=== PATIENT | female | born 1940 | race Caucasian/White ===

== ENCOUNTER 2019-09-30 12:05 | Inpatient (IN) | payer MEDICARE, OTHER, SELFPAY ==
[2019-09-30] MEDS ORDERED: Sodium Chloride 0.9% 10 ML Syringe FLUSH PRN (12:20)
[2019-09-30] MEDS ORDERED: Azithromycin 500 MG in Sodium Chloride 0.9% 250 ML IV SCH ×2 (12:30→12:46)
[2019-09-30] MEDS ORDERED: Albuterol/Ipratropium 3.0-0.5 MG/3 ML Neb Soln NEB PRN (12:53)
[2019-09-30] MEDS ORDERED: Acetaminophen 325 MG Tab PO PRN (13:01)
[2019-09-30] MEDS: Nicotine 14 MG/24 Hr Patch TRDERM SCH (13:10)
[2019-09-30] MEDS: cefTRIAXone 1 GM Vial IVPUSH SCH (13:11)
[2019-09-30 13:34] LABS: CHLORIDE,CL 105 mmol/L (98-107); SODIUM,NA 143 mmol/L (136-145)
[2019-09-30] MEDS: Albuterol/Ipratropium 3.0-0.5 MG/3 ML Neb Soln NEB SCH ×2 (13:36→14:37)
[2019-09-30] MEDS ORDERED: Ondansetron 4 MG/2 ML SDV IVPUSH PRN (14:29)
[2019-09-30] MEDS: Enoxaparin 40 MG/0.4 ML Syringe SUBCUT SCH (17:00)
[2019-09-30] MEDS ORDERED: NICOTINE POLACRILEX 4 MG PO PRN (18:31)
[2019-09-30] MEDS ORDERED: Ondansetron 4 MG Tab.DIS PO PRN (18:31)
[2019-09-30] MEDS ORDERED: Acetaminophen 650 MG Tab.ER PO PRN (18:31)
[2019-09-30] MEDS ORDERED: Cyclobenzaprine 10 MG Tab PO PRN (18:31)
[2019-09-30] MEDS: Diclofenac Sodium 75 MG Tab.EC PO SCH (19:22)
[2019-09-30] MEDS: Hypromellose 0.3% Ophth Soln 15 ML Bottle EYEBOTH SCH (19:22)
[2019-09-30] MEDS: Gabapentin 400 MG Cap PO SCH (19:22)
[2019-09-30] MEDS: Albuterol/Ipratropium 3.0-0.5 MG/3 ML Neb Soln INH SCH (19:22)
[2019-09-30] MEDS: oxyCODONE 5 MG Tab PO PRN (19:23)
[2019-09-30] MEDS: Montelukast 10 MG Tab PO SCH (19:23)
[2019-09-30] MEDS: traZODone 50 MG Tab PO SCH (21:23)
[2019-10-01] MEDS: Albuterol/Ipratropium 3.0-0.5 MG/3 ML Neb Soln INH SCH ×4 (00:45→18:24)
[2019-10-01] MEDS: Omeprazole 20 MG Cap.CR PO SCH (06:08)
[2019-10-01 07:02] LABS: CHLORIDE,CL 107 mmol/L (98-107); SODIUM,NA 144 mmol/L (136-145)
[2019-10-01 07:15] LABS: ANION GAP 14.3 mmol/L (10-20)
[2019-10-01] MEDS: Cholecalciferol (Vitamin D3) 25 MCG Tab PO SCH (07:47)
[2019-10-01] MEDS: Diclofenac Sodium 75 MG Tab.EC PO SCH ×2 (07:47→19:11)
[2019-10-01] MEDS: Simvastatin 10 MG Tab PO SCH (07:47)
[2019-10-01] MEDS: Aspirin 81 MG Tab.EC PO SCH (07:47)
[2019-10-01] MEDS: Hypromellose 0.3% Ophth Soln 15 ML Bottle EYEBOTH SCH ×2 (07:48→19:11)
[2019-10-01] MEDS: Gabapentin 400 MG Cap PO SCH ×3 (07:48→19:10)
[2019-10-01] MEDS: Lactobacillus Rhamnosus GG (Probiotic) Cap PO SCH (07:48)
[2019-10-01] MEDS ORDERED: Potassium Chloride 10 MEQ Tab.ER PO ONE (07:59)
[2019-10-01] MEDS: oxyCODONE 5 MG Tab PO PRN ×2 (08:50→21:20)
[2019-10-01] MEDS: Doxycycline 100 MG Cap PO SCH ×2 (08:50→19:10)
--- NOTE | 2019-10-01 09:29 | CR ---
[id number] RAD/RAD Chest PA or AP 1V EXAM: RAD Chest PA or AP 1V INDICATION: PNEUMONIA. COMPARISON: None. DISCUSSION: Opacification throughout the right lung base with blunting of the costophrenic sulcus. Findings are consistent with an effusion. There is underlying parenchymal opacification as well. Left lung is clear. IMPRESSION: Right-sided pleural effusion with atelectasis and possible superimposed pneumonia. Correlate for signs of infection. Vega Chan MD 10/01/19 0927 Thank you for allowing us to participate in the care of your patient.
--- NOTE | 2019-10-01 10:10 | HP ---
CHIEF COMPLAINT: Cough, body aches, and fatigue. HISTORY OF PRESENT ILLNESS: This is a 79-year-old female who has been sick for the last week. She is not sure if she has had fever, but has had cold sweats. No headache, but has had sinus pain and a nasty cough with runny nose and sore throat off and on. The patient describes the cough as dry. She is not short of breath, but does have some pain with taking deep breaths. She is a smoker. She has weaned down to a half pack per day. She is trying to quit. She has been on albuterol for a few years, but did not start using it until recently. She is using it twice a day. She had PFTs recently showing moderate COPD and was started on Anoro, but has not tried it because of side effects and not knowing how to use it. The patient has used some jkqk-kmr-bxbimac cough syrup. She has tried Vicks Nighttime Relief. She just states she is tired. She does not feel like she is getting better. ALLERGIES: Include sulfa drugs, hives; codeine; hydrocodone; morphine; Sudafed; tramadol. MEDICATIONS: Her medication list is reviewed. She has newly started on Anoro, but has not started yet; Zofran as needed; Neurontin 800 three times a day; albuterol 2 puffs every 4 hours as needed for shortness of breath; trazodone 100 to 150 at bedtime as needed for sleep; Singulair 10 mg daily as needed for allergies; oxycodone 5 mg twice daily as needed for pain, she uses infrequently; triamcinolone cream; Pravachol 10 mg daily; Prilosec 20 mg daily; Flexeril 0.5 to 1 tablet 3 times a day as needed for muscle spasm; Voltaren 75 mg twice daily; Fosamax weekly; aspirin 81 mg daily; ferrous sulfate 325 every other day; ketoprofen eye drops; vitamin D 2000 units daily; Tylenol 650 twice daily as needed for pain; calcium and vitamin D; [place] Boo, Bifantis probiotic; Systane eye drops; NicoDerm patch 21 mg; and nicotine lozenges. 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 PAST SURGICAL HISTORY: Surgically, the patient has had remote history of back surgery, bladder surgery, trigger finger releases, a left total knee, tonsillectomy, laparoscopic cholecystectomy, cataracts, carpal tunnel, knee arthroscopy on the left. SOCIAL HISTORY: The patient is retired. She is . She has 4 children. She is a smoker. FAMILY HISTORY: Both parents are . She has a sister, who , who had colorectal cancer. A couple of living sisters with hypertension. Brother with arthritis and hypertension. REVIEW OF SYSTEMS: General: The patient has had a decreased appetite and 5-pound weight loss over the last few weeks. She has had no fever. HEENT: As stated in the HPI. Respiratory: As stated in the HPI. Otherwise, she denies wheezing. Cough is dry. Cardiac: No chest pain. Gastrointestinal: No nausea, vomiting, or diarrhea. Musculoskeletal: Does have chronic back pain. No changes there. Otherwise, all systems reviewed and found to be negative unless otherwise stated. PHYSICAL EXAMINATION: Vital Signs: When the patient was seen for admission at [facility], her weight was 54.4 kg; her heart rate was 122 after walking just a short distance; blood pressure 130/62; temperature 98.1; O2 of 90 on room air, 89 after walking just a short distance. General: She is in mild distress. She appears ill and tired. Heart: Irregular rate and rhythm with tachycardia. She also has a murmur appreciated. LUNGS: Sounds were slightly decreased on the left, but no wheezes or crackles. On the right base, no lung sounds present. No crackles or wheezes. Abdomen: Nondistended, nontender. Extremities: Warm and dry. No edema. Mental Status: She is alert. She is orientated x3. LABORATORY DATA: Her lab work is ordered and pending. Her chest x-ray does show a right lower lobe infiltrate. ASSESSMENT: 1. Community-acquired pneumonia with hypoxia and tachycardia. Given the patient's fatigue and progression of symptoms, we will admit her for oxygen, IV antibiotics with Rocephin and Zithromax, scheduled DuoNeb and p.r.n. as well. 2. Chronic obstructive pulmonary disease exacerbation with newly diagnosed moderate chronic obstructive pulmonary disease. We will place her on the antibiotics for the pneumonia as well as scheduled nebulizers. We will consider using some Solu-Medrol, but right now she is not wheezing, and we will see how she does. 3. Viral illness, sounds very influenza like. Her symptoms have been present for a week. We will still test her, consider Tamiflu if positive. 4. Smoking. She is trying to quit. We will get her on a nicotine patch. 5. Chronic back pain. We will continue her home medications for that. 6. Osteoporosis. We will go ahead and hold the Fosamax while she is in the hospital. 7. Hyperlipidemia. She may continue her Pravachol. 8. Insomnia. I will continue the trazodone. PLAN: At this point, the patient will be admitted for acute cares for IV antibiotics, nebulizers, and oxygen. We will see clinically how she does. For DVT prophylaxis, I am going to place her on Lovenox. The patient understands that if her condition worsens, we would transfer her to [place] for further cares. At this point, no ABGs or BiPAP is indicated, but certainly we could try that first. She is a code level 1. MKA: 09/30/2019 13:00:07 MODL: 09/30/2019 19:29:38 /[id number]
--- NOTE | 2019-10-01 10:21 | PN ---
Progress Note for DARIUS DIALLO Date: 10/01/2019 Room #: VM.204 SUBJECTIVE: This is hospital day #2 for a 79-year-old admitted with community- acquired right lower lobe pneumonia. The patient has had sweating and cold through the night. She had a T-max of 100.4 at around 10 p.m. She is still coughing up some sputum. Otherwise, she has not had any trouble breathing or required any oxygen. She was able to give a sample and the culture is pending. Otherwise, she felt like eating today. She feels like 100% better, OBJECTIVE: Vital Signs: Her temperature is 97.4, pulse 84, blood pressure 125/70, respiratory rate 18, O2 of 92% on room air. General: She is in no acute distress. Heart: Regular rate and rhythm with murmur noted. Lungs: Sounds are decreased over that right lung, at least 2/[address] up without crackles or wheezes. Left lung is clear. Abdomen: Nondistended, nontender. Extremities: Warm and dry. No edema. Mental Status: Alert and orientated x3. LABORATORY DATA: Lab work shows white count improved to 11.1, hemoglobin 11.7, platelets 279. Sodium 144, potassium 3.3, chloride 107, bicarb 26, BUN 15, glucose 93, calcium 8.1, albumin 2.6 yesterday. ASSESSMENT AND PLAN: 1. Community-acquired right lower lobe pneumonia. She is on IV Rocephin, day #2. We will start her on some oral doxycycline as she got quite nauseated from the Zithromax. 2. Moderate chronic obstructive pulmonary disease with exacerbation due to pneumonia. She is improving with the nebulizers. An oral inhaler was ordered. We will get RT involved to see if they can give that to her and teach her how to use it today. 3. Mild hypokalemia. We will replace orally. 4. Chronic back pain. She is on her home medications. She did use a dose of oxycodone last evening. 5. Insomnia. She is on trazodone. 6. Smoking. She is on a Nicoderm patch. 7. Deep vein thrombosis prophylaxis. She is on Lovenox. PLAN: At this point, the patient will continue acute cares with IV Rocephin. I will start some oral doxycycline. We will repeat her chest x-ray today with a lateral decubitus view to evaluate for pleural effusion. The patient is really hopeful to be discharged later today. I anticipate she needs at least another half day and her dose of Rocephin this afternoon before going home, so I will check on her later. Potential for CT or a thoracentesis if needed MKA: 10/01/2019 08:12:48 MODL: 10/01/2019 10:13:52 /[id number] MTDJennifer
[2019-10-01] MEDS: cefTRIAXone 1 GM Vial IVPUSH SCH (11:40)
[2019-10-01] MEDS: Nicotine 14 MG/24 Hr Patch TRDERM SCH (11:40)
[2019-10-01] MEDS: Enoxaparin 40 MG/0.4 ML Syringe SUBCUT SCH (11:45)
--- NOTE | 2019-10-01 15:04 | CR ---
[id number] RAD/RAD Chest PA And Lateral EXAM: RAD Chest PA And Lateral INDICATION: PLURAL EFFUSION. COMPARISON: Today. DISCUSSION: Lateral view demonstrates hazy opacity projecting over the posterior aspect of the chest. This localizes to the right side on PA view from earlier today. No evidence of significant dependent layering on the decubitus view. Findings are nonspecific. Contrast-enhanced CT examination of the chest is recommended. IMPRESSION: Abnormal appearance of the right hemithorax, described above with recommendations. Vega Chan MD 10/01/19 1502 Thank you for allowing us to participate in the care of your patient.
--- NOTE | 2019-10-01 17:06 | CT ---
[id number] CT/CT Chest W IV EXAM: CT Chest W IV CLINICAL DATA: PLEURAL EFFUSION. COMPARISON: None available. FINDINGS: LUNGS: Trace right pleural effusion. There is near complete atelectasis of the right lower lobe. No pneumothorax or effusion. No endobronchial lesions. HEART AND GREAT VESSELS: Coronary artery disease. Atherosclerotic calcifications of the aorta and its branches. MEDIASTINUM AND LYMPHATICS: No mediastinal or hilar lymphadenopathy. UPPER ABDOMINAL ORGANS: There are numerous hypodense lesions within the liver. Many of these likely represent cysts and were present on study from August 17, 2016. Dedicated CT scan the abdomen and pelvis is recommended on a nonemergent basis for more definitive evaluation. BONES: Scattered changes of spondylosis in the spine. No fracture or osseous lesion. IMPRESSION: 1. Trace right pneumothorax. 2. Trace right pleural effusion. 3. Near complete atelectasis of the right lower lobe. Underlying lesion is not excluded. Bronchoscopy is recommended for further evaluation. Findings discussed with ordering provider at time of dictation. Lucas Wright DO 10/01/19 9334 Thank you for allowing us to participate in the care of your patient.
--- NOTE | 2019-10-01 17:29 | PCM.SN ---
- Free Text/Narrative Note: CT done very small pneumothorax probably not even visible on CXR present. The primary finding was lung collapse concern for possible malignancy will need a Bronchoscopy. There is some fluid but not a lot likely why we didn't get a sample. Patient will be kept on 2 L of oxygen for at least the next 6 hrs. Repeat CXR in 2 hrs if enlarging pneumothorax may need transfer to [place] or a chest tube. I am updating the patient. 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
--- NOTE | 2019-10-01 17:35 | PN ---
Progress Note for DARIUS DIALLO Date: 10/01/2019 Room #: VM.204 This is a 79-year-old on acute care day #2 for pneumonia. She has required oxygen. Her sats have gone down to 88%, but she states she feels fine. Chest x - ray repeated today does show a pleural effusion. Ultrasound was obtained, did show good spacing between the lungs and this fluid. After discussing the risks and benefits of ultrasound-guided thoracentesis, the patient signed the consent, and we proceeded. I numbed up the area with lidocaine and then opened larger space with a scalpel. This was the area that was found to have the largest pocket of fluid. I then used the catheter over the trocar device, I did get in above the rib but was unable to find any fluid. I did not feel it was safe to push the catheter in any further. I did not get any air back. There were just trace amounts of blood when I removed the catheter likely from the superficial irritation with the scalpel and the needle. Otherwise, the patient tolerated the procedure well. No air was found back in the catheter when I was trying to withdraw fluid, she had no increased shortness of breath. Discussed with her the next step would be a CT scan for further evaluation of this pneumonia and fluid, and she is agreeable to proceed with that today. Did discuss if the fluid appears to look like an abscess or loculated, she may even need to go to [place] for further removal or possible chest tube. Otherwise, this procedure was attempted, but not completed. MKA: 10/01/2019 16:23:32 MODL: 10/01/2019 16:57:05 /[id number] KIA
[2019-10-01] MEDS: traZODone 50 MG Tab PO SCH (19:10)
[2019-10-01] MEDS: Montelukast 10 MG Tab PO SCH (19:11)
--- NOTE | 2019-10-01 19:32 | CR ---
[id number] RAD/RAD Chest Portable EXAM: RAD Chest Portable INDICATION: PNEUMOTHORAX COMPARISON: CT chest from earlier today DISCUSSION: Again identified is a small right apical pneumothorax. This measures approximately 8 mm. This is likely not significantly changed when compared to the prior study when allowing for differences in technique. Correlation with patient's respiratory status is recommended. If stable, repeat chest x-ray in 2 hours is recommended to ensure stability of the pneumothorax. Again identified is near complete collapse of the right lower lobe. IMPRESSION: As above. Luacs Wright DO 10/01/19 1931 Thank you for allowing us to participate in the care of your patient.
[2019-10-02] MEDS: Albuterol/Ipratropium 3.0-0.5 MG/3 ML Neb Soln INH SCH ×3 (00:31→12:51)
[2019-10-02] MEDS: oxyCODONE 5 MG Tab PO PRN (04:43)
[2019-10-02] MEDS ORDERED: HYDROmorphone 1 MG/ML Syringe IVPUSH STA (04:52)
[2019-10-02] MEDS: Omeprazole 20 MG Cap.CR PO SCH (06:19)
[2019-10-02 07:21] LABS: CHLORIDE,CL 107 mmol/L (98-107); SODIUM,NA 144 mmol/L (136-145)
[2019-10-02 07:40] LABS: ANION GAP 15.5 mmol/L (10-20)
--- NOTE | 2019-10-02 08:22 | CR ---
[id number] RAD/RAD Chest PA And Lateral EXAM: RAD Chest PA And Lateral INDICATION: PNEUMOTHORAX COMPARISON: Yesterday. DISCUSSION: Tiny right apical pneumothorax is again seen. No change in appearance to prior examination. Right lung base is also unchanged. Correlation with CT demonstrates predominant atelectasis with a small effusion. IMPRESSION: Tiny right apical pneumothorax, correlating with findings on CT from yesterday. Overall, no significant change from the prior radiograph examination. Vega Chan MD 10/02/19 0819 Thank you for allowing us to participate in the care of your patient.
--- NOTE | 2019-10-02 08:30 | CR ---
[id number] RAD/RAD Chest PA And Lateral EXAM: RAD Chest PA And Lateral INDICATION: PNEUMOTHORAX. COMPARISON: October 01, 2019 at 2056 hours. DISCUSSION: Tiny right apical pneumothorax is again seen. No significant change from September 30 at 2056 hours. Appearance of right lung base is also stable. IMPRESSION: Stable appearance of a tiny right apical pneumothorax since prior examination. Vega Chan MD 10/02/19 0830 Thank you for allowing us to participate in the care of your patient.
[2019-10-02] MEDS: Lactobacillus Rhamnosus GG (Probiotic) Cap PO SCH (08:36)
[2019-10-02] MEDS: Simvastatin 10 MG Tab PO SCH (08:36)
[2019-10-02] MEDS: Aspirin 81 MG Tab.EC PO SCH (08:36)
[2019-10-02] MEDS: Diclofenac Sodium 75 MG Tab.EC PO SCH (08:36)
[2019-10-02] MEDS: Doxycycline 100 MG Cap PO SCH (08:36)
[2019-10-02] MEDS: Gabapentin 400 MG Cap PO SCH ×2 (08:36→13:00)
[2019-10-02] MEDS: Hypromellose 0.3% Ophth Soln 15 ML Bottle EYEBOTH SCH (08:37)
[2019-10-02] MEDS ORDERED: oxyCODONE 5 MG Tab PO PRN (09:54)
[2019-10-02] MEDS: Nicotine 14 MG/24 Hr Patch TRDERM SCH (11:42)
[2019-10-02] MEDS: Cholecalciferol (Vitamin D3) 25 MCG Tab PO SCH (11:42)
[2019-10-02] MEDS: cefTRIAXone 1 GM Vial IVPUSH SCH (11:42)
[2019-10-02] MEDS: Enoxaparin 40 MG/0.4 ML Syringe SUBCUT SCH (11:52)
[2019-10-02 13:03] VITALS: BP 126/70; PULSE 92
--- NOTE | 2019-10-02 21:35 | DISCH ---
PRIMARY DISCHARGE DIAGNOSES: 1. A right lower lobe pneumonia, community acquired, with lung collapse. 2. Small 8 mm pneumothorax, iatrogenic from thoracentesis. 3. Newly diagnosed chronic obstructive pulmonary disease with exacerbation due to pneumonia. 4. Hypokalemia, mild, replaced orally. 5. Smoking history, 2 packs per day, wanting to quit. 6. Chronic neck pain and back pain, using oxycodone infrequently, following with Pain Clinic. 7. Insomnia. 8. Deep venous thrombosis prophylaxis. She received Lovenox. REASON FOR ADMISSION: On the date of admission, this 79-year-old female presented to the clinic. She was tachycardic. Oxygen levels went down to 90% with ambulation. She denied fever, but on admission to the hospital was 100.3. X-ray showed pneumonia, and decision was made to admit her for further cares. Blood cultures have been negative. Sputum cultures grew normal respiratory aniya. Influenza testing was negative. Her white count which was initially 12.9 came down to 11.6 on discharge. Hemoglobin was 12.4 bands, so went up to 11% today. Platelets were 316. Sodium 144, potassium 3.5, chloride 107, bicarb 21, BUN 19, creatinine 0.8, glucose 125, calcium 8.2. Liver enzymes normal, but alk phos 152, albumin 2. The patient stated she was feeling well. She had actually hoped to go home. However, discussion was had with her and her family about further arrangements for bronchoscopy given her lung collapse and [place] did accept her in transfer. The patient did have some pain after her thoracentesis and then had an episode of severe pain around 4 a.m. this morning, requiring some IV Dilaudid. Now, she just has some discomfort over the right chest wall, but is not having any shortness of breath, and in fact she is not coughing up as much now as she was previously. She was placed on oxygen 2 L when her sats were 88% before the thoracentesis yesterday. Due to the small pneumothorax, she was kept on 2 L, and her sats were anywhere from 92% to 100%. She remained afebrile through the rest of her hospital stay with her last T-max of 100.4 on 09/29 at 10 p.m. She was placed on a nicotine patch here as well. PHYSICAL EXAMINATION: Discharge vitals: Temperature 96.7, pulse 92, blood pressure 126/70, respiratory rate 16, and O2 of 92% on 1.5 L. General: She is in no acute distress. Heart: Regular rate and rhythm. Lungs: Her lung sounds are decreased over the right base. No crackles or wheezes are appreciated. Left lung is clear. Abdomen: Nondistended, nontender. Extremities: Warm and dry. No edema. Mental status: Alert and orientated x3. DISCHARGE PLANS AND INSTRUCTIONS: The patient is being transferred to [place] for further care with Pulmonary due to right lung collapse in the setting of a pneumonia with some small levels of pleural fluid, but more concern for endobronchial lesion or mucus plugging. Hospitalist is accepting the patient. She did continue to receive IV Rocephin for 3 days here. She got nausea from Zithromax, so she had been placed on oral doxycycline yesterday, which she tolerated. Thirty four minutes spent on this discharge process including arranging for transfer and coordination of care. RADHAA: 10/02/2019 13:18:13 MODL: 10/02/2019 21:29:43 /[id number] MTDD
== END 2019-10-02 13:15 | disposition short-term general hospital (02) | DRG 190 ==
LOC: VM.MS 12:10
PROVIDERS: ADMIT Internal Medicine; ATTEND Internal Medicine
PROC: 0W993ZZ Drainage of Right Pleural Cavity, Percutaneous Approach (ICD-10-PCS; principal; 2019-10-01)
DX: J44.0 Chronic obstructive pulmonary disease with (acute) lower respiratory infection (principal); J18.9 Pneumonia, unspecified organism; J98.19 Other pulmonary collapse; J95.811 Postprocedural pneumothorax; J44.1 Chronic obstructive pulmonary disease with (acute) exacerbation; R09.02 Hypoxemia; J30.9 Allergic rhinitis, unspecified; E78.5 Hyperlipidemia, unspecified; G25.81 Restless legs syndrome; K21.9 Gastro-esophageal reflux disease without esophagitis; E87.6 Hypokalemia; F43.21 Adjustment disorder with depressed mood; N39.41 Urge incontinence; K52.839 Microscopic colitis, unspecified; Z87.19 Personal history of other diseases of the digestive system; M81.0 Age-related osteoporosis without current pathological fracture; M50.30 Other cervical disc degeneration, unspecified cervical region; M51.36 Other intervertebral disc degeneration, lumbar region; M19.90 Unspecified osteoarthritis, unspecified site; G89.29 Other chronic pain; F17.200 Nicotine dependence, unspecified, uncomplicated; Z88.5 Allergy status to narcotic agent; Z88.2 Allergy status to sulfonamides; Z88.8 Allergy status to other drugs, medicaments and biological substances; Z79.82 Long term (current) use of aspirin; Z79.899 Other long term (current) drug therapy; G47.00 Insomnia, unspecified; Z96.652 Presence of left artificial knee joint; Z90.49 Acquired absence of other specified parts of digestive tract; Z98.49 Cataract extraction status, unspecified eye
CPT/HCPCS: 36415; 71045; 71046; 71260; 80048; 80053; 83605; 83735; 85025; 87040; 87070; 87205; 87804; 87804-59; 94640; 94760; A9270-GY; J0456; J0696; J1170; J1650; J7050; J7620-GY

== ENCOUNTER 2020-09-01 06:14 | Inpatient (IN) | payer MEDICARE, OTHER ==
[2020-09-01 06:53] LABS: CHLORIDE,CL 108 mmol/L (98-107); SODIUM,NA 145 mmol/L (136-145)
--- NOTE | 2020-09-01 06:53 | EDM.PDOC ---
ED HPI GENERAL MEDICAL PROBLEM - General Chief Complaint: General Stated Complaint: Right Chest Pain Time Seen by Provider: 09/01/20 06:20 Source of Information: Reports: Patient, EMS, Family History Limitations: Reports: No Limitations - History of Present Illness INITIAL COMMENTS - FREE TEXT/NARRATIVE: Patient brought in via EMS after they were called to the house this morning secondary to the patient per the son states mother had both of her arms on the side of the bed and her hands were shaking and she had generalized shaking apparently all over and she could not talk and seemed short of breath. She also was complaining of back pain at the time after a few minutes and he noticed that she screamed when EMS arrived and lifted her up. Upon arrival in the ER the patient was alert and oriented follows all commands appropriately which included cranial nerve check 2 through 12 equal customer service supervisor bilateral 5 of 5 strength upper and lower bilateral equal facial sensation which is normal bilateral she had no pronator drift no tongue deviation no facial droop. Patient did not complain of any pain weakness loss of strength. She was asked multiple times if she was hurting anywhere she stated no and responded appropriately to all my questions. She states that she did not really want to be in the hospital this morning. She states she has been doing fine the last couple of days although she had not had anything to drink this morning and very thirsty. She has no other complaints Patient does have a history of lung cancer with questionable bone cancer and is DNR status Onset: Sudden Duration: Hour(s): Associated Symptoms: Denies: Confusion, Chest Pain, Cough, cough w sputum, Diaphoresis, Fever/Chills, Headaches, Malaise, Nausea/Vomiting, Seizure, Shortness of Breath, Syncope, Weakness - Related Data Allergies Allergy/AdvReac Type Severity Reaction Status Date / Time hydrocodone Allergy Itching Verified 09/01/20 06:13 morphine Allergy Itching Verified 09/01/20 06:13 Sulfa (Sulfonamide Allergy Rash Verified 09/01/20 06:13 Antibiotics) tramadol Allergy Itching Verified 09/01/20 06:13 codeine AdvReac Irritabilit Verified 09/01/20 06:13 y Home Meds: Home Meds Acetaminophen [Tylenol Arthritis] 650 mg PO BID PRN 09/03/13 [History] Aspirin [Halfprin] 81 mg PO DAILY 09/03/13 [History] Cyclobenzaprine [Flexeril] 10 mg PO TID PRN 09/03/13 [History] Gabapentin [Neurontin] 800 mg PO TID 09/03/13 [History] Paxton Extract [Paxton] 550 mg PO BID 09/03/13 [History] Lactobacillus Combo No.11 [Probiotic] 1 each PO DAILY 09/03/13 [History] Multivitamin [Multi Vitamin Daily] 1 tab PO DAILY 09/03/13 [History] traZODone 100 mg PO BEDTIME 09/03/13 [History] Ergocalciferol (Vitamin D2) [Vitamin D2] 2,000 unit PO DAILY 09/30/19 [History] Ferrous Sulfate 325 mg PO ASDIRECTED 09/30/19 [History] Montelukast [Singulair] 10 mg PO BEDTIME 09/30/19 [History] Nicotine Polacrilex [Nicorette] 4 mg PO Q2HR PRN 09/30/19 [History] Nicotine [Nicotine Patch] 1 patch TOP DAILY 09/30/19 [History] Omeprazole 20 mg PO DAILY 09/30/19 [History] Ondansetron [Zofran ODT] 4 mg PO TID PRN 09/30/19 [History] Pravastatin [Pravachol] 10 mg PO DAILY 09/30/19 [History] Propylene Glycol/Peg 400 [Systane 0.3-0.4% Eye Drops] 1 drop EYEBOTH BID 09/30/19 [History] Triamcinolone Acetonide [Triamcinolone Acetonide 0.1% Crm] 15 mg PO BID PRN 09/30/19 [History] Umeclidinium Brm/Vilanterol Tr [Anoro Ellipta 62.5-25 MCG] 1 inh PO DAILY 09/30/19 [History] oxyCODONE 5 mg PO BID PRN 09/30/19 [History] Albuterol Sulfate [Albuterol Sulfate HFA] 8.5 gm INH Q4H PRN 09/01/20 [History] Calcium Carbonate [Tums] 500 mg PO QID PRN 09/01/20 [History] Calcium Carbonate/Vitamin D3 [Calcium 500 + Vit D 200 Caplet] 1 each PO BID 09/01/20 [History] Fluorometholone [Fluorometholone 0.1% Ophth Susp] 1 drop EYEBOTH ASDIRECTED 0 09/01/20 [History] Hydrocortisone [Hydrocortisone 1% Crm] 28.4 gm TOP BID 09/01/20 [History] LORazepam [Ativan] 1 mg PO ASDIRECTED 09/01/20 [History] Mag Hydrox/Aluminum Hyd/Simeth [Mylanta Maximum Strength Liq] 30 ml PO Q4H PRN 09/01/20 [History] carvediloL [Coreg] 12.5 mg PO BID 09/01/20 [History] dexAMETHasone [Decadron] 4 mg PO BID 09/01/20 [History] levETIRAcetam [Keppra] 500 mg PO BID 09/01/20 [History] Past Medical History Cardiovascular History: Reports: None Respiratory History: Reports: Other (See Below) Other Respiratory History: allergic Rhinitis Gastrointestinal History: Reports: GERD, Other (See Below) Other Gastrointestinal History: Pylopic ulcer, microscopic colitis Genitourinary History: Reports: Other (See Below) Other Genitourinary History: urge incontinence, Menophase Musculoskeletal History: Reports: Arthritis, Osteoarthritis Neurological History: Reports: Other (See Below) Other Neuro History: RLS, Cervical Radiculopathy, Carpal tunnel Psychiatric History: Reports: Anxiety, Depression Endocrine/Metabolic History: Reports: Other (See Below) Other Endocrine/Metabolic History: Hyperlipidema, Hyperglyemia Dermatologic History: Reports: Other (See Below) Other Dermatologic History: skin texture changes - Past Surgical History Musculoskeletal Surgical History: Reports: Arthroscopic Knee, Other (See Below) 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 Social & Family History - Caffeine Use Caffeine Use: Reports: Coffee ED ROS GENERAL - Review of Systems Review Of Systems: See Below Reason Not Obtained: Review of systems per patient and family Constitutional: Reports: No Symptoms HEENT: Reports: No Symptoms Respiratory: Reports: Shortness of Breath, Other (Per son) Cardiovascular: Reports: No Symptoms Endocrine: Reports: No Symptoms GI/Abdominal: Reports: No Symptoms : Reports: No Symptoms Musculoskeletal: Reports: Back Pain, Other (Per son) Skin: Reports: No Symptoms Neurological: Reports: Tremors, Trouble Speaking Psychiatric: Reports: No Symptoms Hematologic/Lymphatic: Reports: No Symptoms Immunologic: Reports: No Symptoms ED EXAM, GENERAL - Physical Exam Exam: See Below Exam Limited By: No Limitations General Appearance: Alert, WD/WN, No Apparent Distress, Other (Patient looks well although she has dry mucous membranes she does answer questions appropriately follows all commands cranial nerves II through XII are intact see HPI) Eye Exam: Bilateral Eye: EOMI, Normal Fundi, Normal Inspection, PERRL Ears: Normal External Exam, Normal Canal, Hearing Grossly Normal, Normal TMs Nose: Normal Inspection, Normal Mucosa, No Blood Throat/Mouth: Normal Inspection, Normal Lips, Normal Teeth, Normal Gums, Normal Oropharynx, Normal Voice, No Airway Compromise Head: Atraumatic, Normocephalic Neck: Normal Inspection, Supple, Non-Tender, Full Range of Motion Respiratory/Chest: No Respiratory Distress, No Accessory Muscle Use. No: Lungs Clear (Lungs are diminished on the right upper and lower field but there is no noted crackles wheezing or rhonchi), Normal Breath Sounds, Chest Non-Tender, Decreased Breath Sounds Cardiovascular: Normal Peripheral Pulses, Regular Rate, Rhythm, No Edema, No Gallop, No JVD, No Murmur, No Rub GI/Abdominal: Normal Bowel Sounds, Soft, Non-Tender, No Organomegaly, No Distention Back Exam: Normal Inspection, Other (No ecchymosis or sores noted) Extremities: Normal Inspection, Normal Range of Motion, Non-Tender, No Pedal Edema, Normal Capillary Refill Neurological: Alert, Oriented, CN II-XII Intact, Normal Cognition, No Motor/Sensory Deficits, Other (Patient has equal machine cementer bilateral no pronator sway 5 of 5 upper extremity lower extremity strength) Psychiatric: Normal Affect, Normal Mood Skin Exam: Warm, Dry, Intact, Normal Color, No Rash Course - Vital Signs Text/Narrative:: BC BMP chest x-ray and CT head secondary to the patient's history of DNR DNI if anything comes back positive I will add on labs for coags urine will be held to she can go naturally versus Vivar catheter being placed Head CT reveals 15 mm hemorrhage in the right parietal lobe with significant surrounding vasogenic edema and localized mass-effect MRI was recommended with and without contrast spoke with neurology stroke Dr. WELSH states unless patient wants a surgical intervention with neurosurgery there is nothing else to do except for increase in her Keppra to 750 twice daily Spoke with family in regards to the patient's condition and possible outcome in regards to possibly calling in hospice. Spoke with Dr. Lissa Bentley who now will help family make decisions and is in the ER to see the patient 0840 Per PCP patient will be admitted for further care possibly set up hospice depending on outcome Last Recorded V/S: Last Vital Signs Temp 37.1 C 09/01/20 06:30 Pulse 128 H 09/01/20 06:30 Resp 18 09/01/20 06:30 BP 156/74 H 09/01/20 06:30 Pulse Ox 94 L 09/01/20 06:30 - Orders/Labs/Meds Labs: Laboratory Tests 09/01/20 09/01/20 09/01/20 Range/Units 06:21 06:30 06:30 WBC 4.2 (4.0-10.0) x10^3/uL RBC 3.46 L (4.00-5.50) x10^6/uL Hgb 11.5 L (12.0-16.0) g/dL Hct 35.1 (33.0-47.0) % MCV 101.4 H D (78.0-93.0) fL MCH 33.2 H (26.0-32.0) pg MCHC 32.8 (32.0-36.0) g/dL RDW Coeff of Christopher 16.2 H (10.0-15.0) % Plt Count 136 D (130-400) x10^3/uL Neut % (Auto) 65.5 (50.0-80.0) % Lymph % (Auto) 29.7 (25.0-50.0) % Henderson % (Auto) 4.1 (2.0-11.0) % Eos % (Auto) 0.5 (0.0-4.0) % Baso % (Auto) 0.2 (0.2-1.2) % Sodium 145 (136-145) mmol/L Potassium 4.2 (3.5-5.1) mmol/L Chloride 108 H (98-107) mmol/L Carbon Dioxide 28 (21-32) mmol/L Anion Gap 13.2 (5-15) mmol/L BUN 19 H (7-18) mg/dL Creatinine 0.8 (0.55-1.02) mg/dL Est Cr Clr Drug Dosing TNP Estimated GFR (MDRD) > 60 Glucose 113 H (74-106) mg/dL POC Glucose 103 (74-106) mg/dL Calcium 8.6 (8.5-10.1) mg/dL Departure - Departure Time of Disposition: 08:30 Disposition: Admitted As Inpatient 66 Condition: Poor Clinical Impression: Cerebral hemorrhage, Lung cancer, End of life care, Seizure disorder as sequela of cerebrovascular accident - Discharge Information *PRESCRIPTION DRUG MONITORING PROGRAM REVIEWED*: No *COPY OF PRESCRIPTION DRUG MONITORING REPORT IN PATIENT CASIMIRO: No Forms: ED Department Discharge Sepsis Event Note (ED) - Focused Exam Vital Signs: Vital Signs Temp Pulse Resp BP Pulse Ox 09/01/20 06:30 37.1 C 128 H 18 156/74 H 94 L - Problem List & Annotations (1) Cerebral hemorrhage SNOMED Code(s): 267415078 Code(s): I61.9 - NONTRAUMATIC INTRACEREBRAL HEMORRHAGE, UNSPECIFIED Status: Acute Current Visit: Yes (2) End of life care SNOMED Code(s): 722644109, 748135609 Code(s): Z51.5 - ENCOUNTER FOR PALLIATIVE CARE Status: Acute Current Visit: Yes (3) Lung cancer SNOMED Code(s): 346495538 Code(s): C34.90 - MALIGNANT NEOPLASM OF UNSP PART OF UNSP BRONCHUS OR LUNG Status: Acute Current Visit: Yes (4) Seizure disorder as sequela of cerebrovascular accident SNOMED Code(s): 116034013117436 Code(s): I69.398 - OTHER SEQUELAE OF CEREBRAL INFARCTION; G40.909 - EPILEPSY, UNSP, NOT INTRACTABLE, WITHOUT STATUS EPILEPTICUS Status: Acute Current Visit: Yes
[2020-09-01 06:54] LABS: ANION GAP 13.2 mmol/L (5-15)
--- NOTE | 2020-09-01 07:58 | CR ---
[id number] RAD/RAD Chest PA or AP 1V EXAM: FRONTAL CHEST INDICATION: SHORT OF BREATH. COMPARISON: October 02, 2019. DISCUSSION: 82 x 50 mm perihilar left masslike opacity. This could represent a tumor, focal consolidation, or loculated fluid within the fissure. Chest CT with contrast could provide further evaluation. Mild blunting of the left costophrenic angle suggests underlying effusion. The right lung is clear. The heart is normal in size. Interval improvement or resolution of right lower lobe consolidation. IMPRESSION: 1. Masslike left perihilar opacity. Differential includes neoplasm, localized pneumonia and loculated pleural fluid. A chest CT with contrast could provide further evaluation. Rayo Tucker MD 09/01/20 0757 Thank you for allowing us to participate in the care of your patient.
--- NOTE | 2020-09-01 07:59 | CT ---
[id number] CT/CT Head WO IV EXAM: NONCONTRAST HEAD CT INDICATION: Possible cerebrovascular accident. COMPARISON: None. DISCUSSION: In the parafalcine right parietal lobe there is a 15 x 10 mm area of hemorrhage or less likely calcification with a 55 x 40 mm area of surrounding vasogenic edema. The amount of edema is greater than expected for a simple parenchymal hemorrhage and an underlying hemorrhagic mass is suspected. Brain MRI with and without contrast is suggested. There is mild associated mass effect, but no significant midline shift or evidence of impending herniation. Mild chronic small vessel ischemic changes including chronic basal ganglia lacunar infarcts. No acute territorial infarct is identified. The orbits and paranasal sinuses are unremarkable. Results called at time of dictation. IMPRESSION: 1. There is a 15 mm area of hemorrhage in the right parietal lobe with significant surrounding vasogenic edema and localized mass effect. The amount of edema is greater than expected for the area of simple hemorrhage and an underlying mass is suspected. Brain MRI with and without intravenous contrast agent is suggested. Rayo Tucker MD 09/01/20 0757 Thank you for allowing us to participate in the care of your patient.
[2020-09-01] MEDS ORDERED: Acetaminophen 500 MG Tab PO PRN (09:17)
[2020-09-01] MEDS ORDERED: diphenhydrAMINE 25 MG Cap PO PRN (09:17)
[2020-09-01] MEDS ORDERED: Ondansetron 4 MG/2 ML SDV IVPUSH PRN (09:17)
[2020-09-01] MEDS ORDERED: Atropine 1% Ophth Soln 5 ML BOTTLE SL PRN (09:17)
[2020-09-01] MEDS ORDERED: Lidocaine 2% Viscous Solution 15 ML Cup PO PRN (09:24)
[2020-09-01] MEDS ORDERED: HYDROmorphone 1 MG/ML Syringe IVPUSH PRN (09:29)
[2020-09-01] MEDS ORDERED: diphenhydrAMINE 50 MG/ML SDV IVPUSH PRN (09:30)
[2020-09-01] MEDS: Dexamethasone 4 MG/ML SDV IVPUSH SCH ×2 (10:11→20:18)
[2020-09-01] MEDS: LEVETIRACETAM IV SCH ×2 (11:32→20:19)
[2020-09-01] MEDS ORDERED: Aluminum Hydroxide/Magnesium Hydroxide/Simethicone Susp 30 ML Cup PO PRN (18:51)
[2020-09-01] MEDS ORDERED: traZODone 50 MG Tab PO PRN (18:51)
[2020-09-01] MEDS ORDERED: Cyclobenzaprine 10 MG Tab PO PRN (18:51)
[2020-09-01] MEDS ORDERED: oxyCODONE 5 MG Tab PO PRN (18:51)
[2020-09-01] MEDS ORDERED: Triamcinolone Acetonide 0.1% Crm 15 GM Tube TOP PRN (18:51)
[2020-09-01] MEDS ORDERED: Hypromellose 0.3% Ophth Soln 15 ML Bottle EYEBOTH PRN (18:51)
[2020-09-01] MEDS ORDERED: Albuterol/Ipratropium 3.0-0.5 MG/3 ML Neb Soln NEB PRN (18:54)
[2020-09-01] MEDS ORDERED: FLUOROMETHOLONE EYEBOTH SCH (20:00)
[2020-09-01] MEDS: Carvedilol 12.5 MG Tab PO SCH (20:37)
[2020-09-01] MEDS: Gabapentin 400 MG Cap PO SCH (20:38)
--- NOTE | 2020-09-01 22:41 | HP ---
CHIEF COMPLAINT: Seizure. HISTORY OF PRESENT ILLNESS: This is a 80-year-old female with known lung cancer, metastatic to the brain, who had a previous admission at [facility] due to generalized weakness and neurologic changes related to that. She finished radiation around 08/11. She was started on Keppra, but had not had a seizure. She was taking dexamethasone, and then this morning, she was brought to ER around 6 a.m. Her son had noticed she had not flushed the toilet, went in there, and her back was arched and seizure-like activity. When she arrived in the ER, it was reported by the ER staff that she was moving all extremities and answering questions appropriately. There were no focal deficits. CT was obtained and showed a 15 mm hemorrhage in the right parietal lobe with surrounding vasogenic edema and localized mass effect, which is likely related to her cancer. Concern would be the patient would have a stroke due to this. She also has a chest x-ray, which showed the mass-like area in the left lung. The patient now is quite somnolent despite not receiving any medication. She actually wants to be at home, does not want to be in the hospital, did not want to go to [place] or have surgery. We did talk about staying in the [facility] to monitor and medicate to prevent further seizures and she said okay to that with her son and daughter present. She currently denies any pain. ALLERGIES: Include hydrocodone and morphine, which cause itching; sulfa, hives; codeine and tramadol cause itching; and Sudafed makes her hyper. MEDICATION LIST: Reviewed. She recently was started on Macrobid 100 mg twice daily yesterday for UTI, Trelegy inhaler, Decadron 4 mg daily, Ativan 1 hour prior to treatments, Keppra 500 twice daily, Coreg 6.25 b.i.d., Maalox as needed, Prilosec 20 mg daily, women's multivitamin, Systane eye drops, hydrocortisone cream, trazodone 150 mg as needed for sleep, Neurontin 800 three times a day, oxycodone twice daily as needed for pain, has not got a script since April, Flexeril 5 to 10 mg 3 times a day as needed for muscle spasm, calcium and vitamin D, Singulair, Pravachol, Tums, Zofran as needed, hawthorn palomino and probiotic and Tylenol p.r.n., vitamin D 2000 units daily, iron 325 as needed, aspirin 81 mg daily, Kenalog cream, albuterol inhaler as needed. PAST MEDICAL HISTORY: Includes adjustment disorder with anxiety and depression, osteoporosis, chronic back pain due to work comp injury in 1985 with previous back surgeries, lung cancer with bone and brain metastases, cervical radiculopathy, GERD, hyperlipidemia, microscopic colitis remotely, osteoarthritis, previous peptic ulcer disease due to NSAIDs, restless legs syndrome, smoking, urinary urge incontinence. PAST SURGICAL HISTORY: She has had a left total knee replacement. She has had back surgeries. She has had bladder surgeries. She has had trigger finger releases. She has had tonsillectomy, carpal tunnel surgery, lap hang, cataract surgery, bronchoscopies. SOCIAL HISTORY: The patient is retired. She is . She has 4 children. She is smoking like half pack a day. She did quit for a while after the lung cancer diagnosis. Her son, Simón, was living with her 12/02 and caring for her, but up until this event in July, she was driving. Her mom of heart problems. Her father had dementia. One sister of colorectal cancer. Two other sisters are living with hypertension. Looks like at least a couple to 3 brothers living with arthritis and hypertension. REVIEW OF SYSTEMS: Currently unobtainable from the patient due to somnolence. PHYSICAL EXAMINATION: Vital Signs: Her temperature was 99.9, pulse 125, blood pressure 132/65, respiratory rate 20, and O2 of 95% on 4 L. General: She is in no acute distress. She is resting comfortably. She does have a hard time keeping her eyes open, but is responsive to verbal stimuli. Heart: Regular rate and rhythm with tachycardia. Lungs: Her lung sounds are clear to auscultation bilaterally without crackles or wheezes, but has poor respiratory effort. Abdomen: Has positive bowel sounds. It is soft. Mildly distended, but nontender. Musculoskeletal: She is moving her extremities some, but did not cooperate for a full neuro exam. Mental Status: She is not very alert. She is somnolent, but her pupils are equal, round, and still reactive to light. She is able to answer some questions, but drifts off to sleep. LABORATORY WORK: Her white count is normal at 4.2, hemoglobin 11.5, platelets 136. Sodium 145, potassium 4.2, chloride 108, bicarb 28, BUN 19, creatinine 0.8, glucose 113, calcium 8.6. CT as above. Also, the head did show 15 mm hemorrhage in the right parietal lobe with significant surrounding edema and localized mass effect. ASSESSMENT: 1. Cerebral hemorrhage with a seizure related to her underlying metastatic lung cancer. The patient is now somnolent, possibly postictal. We will continue supportive inpatient cares and increase Keppra to 500 intravenous t.i.d. and dexamethasone to 4 twice daily as discussed with her oncologist. 2. Metastatic lung cancer with neurologic changes. She has already completed radiation. She did have her last infusion of immunotherapy on 08/20, nivolumab. Hold on current treatments for now. Goals of care comfort and the patient wishes to return home once stabilized. 3. Chronic obstructive pulmonary disease. She is not currently having any exacerbation. We will give her nebulizers if needed. 4. Urinary tract infection. We will check a UA and give her antibiotics. She has already been started on Macrobid. We will have to give intravenous if she is not awake and alert enough to take oral. We will place a catheter for comfort. 5. Palliative and end-of-life cares. The patient will have comfort medications like Dilaudid for pain. She will have Valium in case another seizure or restlessness. 6. Chronic back pain. We will continue her Neurontin when she is alert and able enough to take it. PLAN: The patient is admitted for acute cares for management of neurologic deficits after a seizure in the setting of metastatic lung cancer with cerebral hemorrhage. We will hold off on any anticoagulation. Her family including 2 children, [id number], and sister were present and aware of this plan. We will get [employer] involved and see about arranging for a hospice discharge home as soon as she is stable and caregivers are arranged. PARUL: 09/01/2020 09:50:04 MODL: 09/01/2020 19:27:27 /[id number] KIA
[2020-09-02] MEDS: Dexamethasone 4 MG/ML SDV IVPUSH SCH ×2 (08:19→20:04)
[2020-09-02] MEDS: Carvedilol 12.5 MG Tab PO SCH ×2 (08:19→20:04)
[2020-09-02] MEDS: Gabapentin 400 MG Cap PO SCH ×3 (08:19→20:04)
[2020-09-02] MEDS: LEVETIRACETAM IV SCH ×3 (08:21→20:03)
[2020-09-02] MEDS: cefTRIAXone 1 GM Vial IVPUSH SCH (09:39)
--- NOTE | 2020-09-02 18:01 | PN ---
Progress Note for DARIUS DIALLO Date: 09/02/2020 Room #: VM.222 SUBJECTIVE: This is hospital day #2 on a 80-year-old, who presented to the ER yesterday with a seizure, which was likely related to her metastatic lung cancer. The patient does not have any headaches. Her speech was affected yesterday and she slept all day, but today she is awake and alert. She is able to take pills. She is denying any headache or vision changes. She does feel like she has to go to the bathroom. She actually wants her catheter to be left in. Her UA did not show any infection, but after admission, she did spike a 101.3 fever around 9:30 a.m., but has not had any fever since. She is not having any coughing or shortness of breath. The oxygen keeps coming out and her sats were 93% on room air. She has been receiving IV Decadron and Keppra. Her last dose of Dilaudid was at 2 a.m. Family is at bedside. OBJECTIVE: Vital Signs: Her temperature 97.9, pulse 82, blood pressure 116/52, respiratory rate 17, and O2 this morning was 97 on 3 L, again 93 on room air. General: She is in no acute distress. Heart: Regular rate and rhythm with murmur. Lungs: Sounds are clear to auscultation bilaterally without crackles or wheezes. Abdomen: Positive bowel sounds. Soft, nontender. Extremities: Warm and dry. No edema. HEENT: Extraocular motor function is intact. Her scalp is palpated. There is no tenderness. Her pupils are equal. Mental Status: She is alert and orientated x3. LABORATORY DATA: Electrolytes and lab work okay on admit. Hemoglobin was 11.5. Nothing has been repeated. ASSESSMENT: 1. Seizure, related to metastatic lung cancer. The patient is electing to go home with hospice. We will make arrangements for this tomorrow. 2. Cerebral hemorrhage, related to the tumor. She has no residual stroke-like symptoms. Discuss repeating the CT. Would not talent management specialist for her goals of care to return home and not be in the hospital. We will continue with dexamethasone and Keppra, increase doses IV and transition over to oral on discharge. 3. Metastatic lung cancer, previously on nivolumab. I have discussed with her oncologist. She will not be receiving further treatments. 4. Chronic obstructive pulmonary disease, stable without exacerbation. She can continue her home medications of Anoro. 5. Urinary tract infection. UA normal yesterday, but only got like one dose of Macrobid. I will give her a dose of Rocephin today as she is starting to feel some irritation and the catheter is in place. 6. Palliative cares. 7. Chronic back pain, on Neurontin. PLAN: The patient will continue on acute cares. The family will have a meeting with hospice today. She will not have any further anticoagulation. I will hold off on any aspirin. We will focus on pain control. We will get some Ativan available solution also to have on discharge in case of any seizures. MKA: 09/02/2020 16:53:35 MODL: 09/02/2020 17:56:42 /[id number]
[2020-09-03 08:32] VITALS: BP 117/64
[2020-09-03] MEDS: cefTRIAXone 1 GM Vial IVPUSH SCH (09:21)
[2020-09-03] MEDS: Gabapentin 400 MG Cap PO SCH ×2 (09:22→12:31)
[2020-09-03] MEDS: Dexamethasone 4 MG/ML SDV IVPUSH SCH (09:23)
[2020-09-03] MEDS: LEVETIRACETAM IV SCH ×2 (09:23→12:31)
[2020-09-03] MEDS: Carvedilol 12.5 MG Tab PO SCH (09:24)
[2020-09-03 09:25] VITALS: PULSE 80
--- NOTE | 2020-09-03 15:00 | DISCH ---
PRIMARY DISCHARGE DIAGNOSES: 1. 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 2. Cerebral hemorrhage due to metastatic lung cancer, but no stroke. 3. 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 She did complete some radiation last month. She has declined brain surgery. She was previously on treatments with nivolumab which has been discontinued. 4. Smoking. 5. Chronic back pain due to a work comp injury. 6. Urge incontinence. The patient prefers to keep the catheter in place for comfort. 7. Hyperlipidemia. 8. Osteoporosis. 9. Adjustment disorder with anxiety and depression. REASON FOR ADMISSION: On the day of admission very early in the morning, this patient had a seizure that her son witnessed. Ambulance was called. The patient was able to move her extremities, but was having expressive aphasia. The concern was that she had a stroke. CT performed and did show her to have the 15 mm area of hemorrhage in the right parietal lobe with surrounding vasogenic edema and localized mass effect that she had completed radiation for a few weeks ago. She is already on dexamethasone 4 mg daily and Keppra 500 mg twice daily. The patient was admitted. She slept most of the day. She was not even able to swallow as she was not alert enough. Therefore, she was placed on IV Keppra 500 t.i.d. and oral dexamethasone 4 b.i.d. I consulted with her neurosurgeon. I consulted with her family and also the patient whose goals of care is to not be in the hospital and return home. She had already been following with Home Health who also provides hospice care. Therefore, arrangements were made for her to return home today with hospice care. The patient did get 1 dose of IV Dilaudid for pain after admission. However, she denies any headache. No changes in vision. The patient will have liquid Ativan in her home along with her increased Keppra 500 t.i.d. and increased dexamethasone. Catheter will be changed monthly. The patient will follow up in the clinic as needed otherwise. PHYSICAL EXAMINATION: Vital Signs: Discharging vitals include temperature 98.3, pulse 86, blood pressure 117/64, respiratory rate 17, and O2 of 97% on room air. General: She is in no acute distress. Heart: Regular rate and rhythm with murmur. Lungs: Lung sounds are clear to auscultation bilaterally without crackles or wheezes. Abdomen: Has positive bowel sounds. Soft, nondistended, nontender. Extremities: Warm and dry. No edema. Mental Status: Alert and orientated x3. Her speech was appropriate. HOSPITAL COURSE: Actually, the patient's urine culture through the clinic did return positive for Klebsiella 40,000. She had been started on Macrobid. However, in the hospital after getting the Macrobid, her urine was completely clear, but she was still having symptoms and the catheter was in place. She received 2 doses of IV Rocephin and was told to continue on her Macrobid, however, that was before I discovered her culture was resistant. At this point, we will just monitor. MKA: 09/03/2020 14:33:00 MODL: 09/03/2020 14:53:42 /[id number]
== END 2020-09-03 14:00 | disposition hospice, home (50) | DRG 65 ==
LOC: VM.ED 06:14 → VM.MS 09:00
PROVIDERS: ADMIT Internal Medicine; ATTEND Internal Medicine
DX: I61.9 Nontraumatic intracerebral hemorrhage, unspecified (principal); C34.90 Malignant neoplasm of unspecified part of unspecified bronchus or lung; N39.0 Urinary tract infection, site not specified; C79.31 Secondary malignant neoplasm of brain; C79.51 Secondary malignant neoplasm of bone; Z51.5 Encounter for palliative care; J44.9 Chronic obstructive pulmonary disease, unspecified; Z66 Do not resuscitate; E78.5 Hyperlipidemia, unspecified; B96.1 Klebsiella pneumoniae [K. pneumoniae] as the cause of diseases classified elsewhere; M54.9 Dorsalgia, unspecified; F32.9 Major depressive disorder, single episode, unspecified; N39.41 Urge incontinence; G89.29 Other chronic pain; F17.200 Nicotine dependence, unspecified, uncomplicated; G40.909 Epilepsy, unspecified, not intractable, without status epilepticus; M81.0 Age-related osteoporosis without current pathological fracture; Z96.652 Presence of left artificial knee joint; F43.22 Adjustment disorder with anxiety; Z88.5 Allergy status to narcotic agent; Z79.82 Long term (current) use of aspirin; I69.398 Other sequelae of cerebral infarction; J30.9 Allergic rhinitis, unspecified; Z88.2 Allergy status to sulfonamides; F41.9 Anxiety disorder, unspecified; G25.81 Restless legs syndrome; K21.9 Gastro-esophageal reflux disease without esophagitis; Z88.6 Allergy status to analgesic agent; M19.90 Unspecified osteoarthritis, unspecified site; Z79.899 Other long term (current) drug therapy
CPT/HCPCS: 51702; 70450; 71045; 80048; 81003; 82962; 85025; 97161-GP; 99284; 99285-25; A9270-GY; J0696; J1100; J1170; J1953